=== PATIENT | male | born 1985 | race Two or more races ===

== ENCOUNTER → 2024-05-10 | Outpatient (CLI) | payer BC, SELFPAY ==
[2024-05-10 13:37] LABS: Alanine Aminotransferase 69 U/L (10-49); Albumin, Serum 5.3 gm/dL (3.5-5.0); Alkaline Phosphatase 95 U/L (46-116); Aspartate Amino Transferase 28 U/L (0-34); Bilirubin,Direct 0.3 mg/dL (0.0-0.3); Bilirubin,Total 1.1 mg/dL (0.3-1.2); Cardiac Risk Estimate 4.1 RATIO (4.0-6.7); Cholesterol 207 mg/dL (132-200); HDL Cholesterol 50 mg/dL (40-60); LDL Cholesterol,Calculated 118 mg/dL (0-130); Triglycerides 196 mg/dL (30-150)
== END | disposition home or self-care (01) ==
LOC: COPL 12:27
PROVIDERS: PCP Internal Medicine; Referring Provider Internal Medicine; Visit Provider Internal Medicine
DX: E78.2 Mixed hyperlipidemia (principal)
CPT/HCPCS: 36415; 80061; 80076

== ENCOUNTER 2024-05-12 21:47 | Emergency (ER) | payer BC, SELFPAY ==
[2024-05-12 21:48] VITALS: BMI 33.6
[2024-05-12 22:05] VITALS: BP 140/96; PULSE 104; RESP 18; TEMP 36.9; O2SAT 97
--- NOTE | 2024-05-12 22:11 | XR_ITS ---
Examination: CT abdomen and pelvis without contrast. Coronal 3-D reconstructions. Sagittal 2-D reconstructions. Date and time of exam:May 12, 2024 10:40 PM Indications: Left-sided flank pain beginning 2 hours ago, history kidney stones Comparison: February 14, 2024 CTDI: vol (mGy): 9.55 DLP: (mGycm): 594 Technique: Axial images of the abdomen have been obtained, 3 mm slice thickness Intravenous contrast material has not been administered. Low dose protocols were performed. One or more of the following dose reduction techniques were used; automated exposure control, adjustment of the mA and/or KV according to patient size, use of iterative reconstruction technique. Findings: Diffuse fatty infiltration throughout the liver Contracted gallbladder No pancreatic or splenic mass Bilateral 1 to 3 mm renal calculi Mild left hydronephrosis secondary to 2 mm distal left ureteral calculus Aorta normal size Normal appendix No bowel obstruction No bladder mass No prostatomegaly Impression: Mild left hydronephrosis secondary to 2 mm distal left ureteral calculus
--- NOTE | 2024-05-12 22:13 | EDRME_ITS ---
Rapid Medical Screening Exam RME Arrival date/time: 05/12/24 21:47 Chief Complaint: General Adult/Misc Complain Time Seen by Provider: 05/12/24 22:09 Vital signs: Vital Signs Temperature 98.5 F 05/12/24 22:05 Pulse Rate 104 H 05/12/24 22:05 Respiratory Rate 18 05/12/24 22:05 Blood Pressure 140/96 H 05/12/24 22:05 Pulse Oximetry (%) 97 05/12/24 22:05 Oxygen Delivery Method Room Air 05/12/24 22:05 [facility] Narrative: 39-year-old male patient with history of kidney stone in the past, came in for evaluation regarding left flank pain. Onset of symptoms for the last 2 days as left lung pain now radiating to the left lower abdomen. Described as sharp pain, severity moderate. Associated with nausea but denies any vomiting denies any fever. Also complained of blood-tinged urine. Denies any dysuria.
[2024-05-12] MEDS: ONDANSETRON ODT 4 MG TABRAP PO (22:47)
[2024-05-12] MEDS: KETOROLAC INJ 60 MG/2 ML VIAL 30 MG IM (22:48)
[2024-05-12 22:50] LABS: Basophils # (Auto) 0.1 Thou/mm3 (0.0-0.2); Basophils % (Auto) 0 % (0-2.5); Eosinophils # (Auto) 0.2 Thou/mm3 (0.0-0.5); Eosinophils % (Auto) 1 % (0-10); Hemoglobin 15.7 g/dL (13.5-16.0); Immature Granulocytes % (Auto) 0 % (0-0); Immature Granulocytes Auto 0.06 Thou/mm3 (0.00-0.00); Lymphocytes # (Auto) 3.1 Thou/mm3 (1.0-4.8); Lymphocytes % (Auto) 20 % (10-50); Mean Corpuscular HGB Conc 34.1 g/dl (31.0-37.0); Mean Corpuscular Hemoglobin 30.3 pg (25.0-35.0); Mean Corpuscular Volume 89 fL (80-100); Monocytes # (Auto) 0.9 Thou/mm3 (0.0-0.8); Monocytes % (Auto) 6 % (0-12); Neutrophils # (Auto) 11.5 Thou/mm3 (1.8-7.7); Neutrophils % (Auto) 73 % (37-80); Nucleated Red Blood Cell % 0 /100 WBC (0); Platelet Count 318 Thou/mm3 (140-440); RDW Standard Deviation 40.3 fL (35.1-43.9); Red Blood Count 5.19 Miln/mm3 (4.50-5.90); White Blood Count 15.8 Thou/mm3 (3.8-10.6)
[2024-05-12 23:05] LABS: Alanine Aminotransferase 65 U/L (10-49); Albumin, Serum 5.1 gm/dL (3.5-5.0); Albumin/Globulin Ratio 1.7 (1.2-2.2); Alkaline Phosphatase 91 U/L (46-116); Anion Gap 9 (7-16); Aspartate Amino Transferase 35 U/L (0-34); BUN/Creatinine Ratio 9 Ratio (12-20); Bilirubin,Total 0.5 mg/dL (0.3-1.2); Blood Urea Nitrogen 13 mg/dL (9-23); Calcium 10.8 mg/dL (8.3-10.6); Calcium (Corrected) 10.8 mg/dL (8.5-10.1); Carbon Dioxide 27.9 mMol/L (20.0-31.0); Chloride 103 mMol/L (98-107); Creatinine (Component) 1.4 mg/dL (0.6-1.3); Estimated Creatinine Clearance 78.8 mL/min (>60); Glucose 115 mg/dL (74-106); Lipase 43 U/L (12-53); Osmolality,Calculated 280 (275-295); Potassium 4.2 mMol/L (3.4-5.1); Sodium 140 mMol/L (136-145); Total Protein 8.1 gm/dL (5.7-8.2); eGFR > 60 See Note
[2024-05-13 00:59] LABS: Collection Type, Urine Clean Catch
[2024-05-13 01:20] LABS: Bilirubin,Urine Negative (Negative); Blood,Urine 2+ (Negative); Clarity,Urine Clear (Clear/Hazy); Color,Urine Yellow (Lt Yel-Yel); Culture Indicated,Urine Not Indicated; Glucose, Urine Negative (Negative); Ketones,Urine Trace (Negative); Leukocyte Esterase,Urine Negative (Negative); Nitrite,Urine Negative (Negative); PH,Urine 5.5 (5.0-7.0); Protein,Urine Trace (Neg - Trace); RBC,Urine 53 /hpf (0-3); Squamous Epithelial Cell,Urine < 1 /hpf (0-5); Urobilinogen,Urine Negative mg/dL (0.0-1.0); WBC,Urine 9 /hpf (0-5)
[2024-05-13] MEDS: cefTRIAXone 1,000 MG in SODIUM CHLORIDE 0.9% (P) 50 ML 100 MG IV (03:02)
[2024-05-13 03:05] VITALS: BP 132/91; PULSE 82; RESP 17; O2SAT 98
[2024-05-13] MEDS: HYDROcodone/APAP 5/325 TABLET 1 TAB PO (03:37)
[2024-05-13] MEDS: TAMSULOSIN HCL 0.4 MG CAPSULE PO (03:37)
--- NOTE | 2024-05-13 04:20 | EDNOTE_ITS ---
ED General RME/HPI General Chief complaint: General Adult/Misc Complain Stated complaint: LEFT FLANK PAIN Time Seen by Provider: 05/12/24 22:09 Source: patient Arrival date/time: 05/12/24 21:47 Mode of arrival: ambulatory Limitations: no limitations RME / HPI RME / HPI narrative: 39-year-old male patient with history of kidney stone in the past, came in for evaluation regarding left flank pain. Onset of symptoms for the last 2 days as left lung pain now radiating to the left lower abdomen. Described as sharp pain, severity moderate. Associated with nausea but denies any vomiting denies any fever. Also complained of blood-tinged urine. Denies any dysuria. DR ALMAZAN MAIN ED EVALUATION: 37-year-old male presents to ED via private auto for c/o left flank pain. Patient notes onset began approximately 2 days ago. The pain was initially in his left lung area radiating to his left lower abdomen area. Symptoms are moderate. He reports nausea but no vomiting. No fever. He notes some blood- tinged urine but no dysuria. Denies any other medical complaints. Related Data Previous Rx's ?Medication ?Instructions ?Recorded amoxicillin 875 mg-potassium 1 tab PO BID #14 tabs 05/17/20 clavulanate 125 mg tablet (Augmentin) doxycycline hyclate 100 mg tablet 100 mg PO BID #14 tabs 05/17/20 metformin 500 mg tablet 500 mg PO BID #60 tabs 05/17/20 ibuprofen 600 mg tablet 600 mg PO Q6H PRN pain #30 tabs 05/13/24 tamsulosin 0.4 mg capsule 0.4 mg PO QDAY #14 caps 05/13/24 Allergies Allergy/AdvReac Type Severity Reaction Status Date / Time Penicillins Allergy Intermediate Hives Verified 05/21/18 13:56 Review of Systems Review of Systems Systems Reviewed: All systems reviewed, normal except as documented Past Medical History Past Medical History CARDIAC: Negative Cardiac Disorders or Congestive Heart Failure RESPIRATORY: Positive Asthma; Negative Chronic Obstructive Pulmonary Disease (COPD) GENITOURINARY: Negative Renal Disease ENDOCRINE: Negative Diabetes Mellitus Type 1 or Diabetes Mellitus Type 2 HEMATOLOGIC: Negative Sickle Cell Disease Social History SMOKING STATUS: Never smoker ED Exam Narrative Physical exam: GENERAL APPEARANCE: alert and oriented x 4, well-developed, well-nourished, no acute distress VITALS: All vitals were reviewed and the pulse ox is 98% on room air, which is normal according to my interpretation. HEENT: Normocephalic, atraumatic; pupils equal, round, reactive to light; EOMI; mucous membranes pink, moist; oropharynx clear NECK: Supple LUNGS: CTABL; no wheezes, no rales, no rhonchi HEART: Regular rate, regular rhythm; normal S1, S2; no murmurs ABDOMEN: non distended; normal BS; soft, no tenderness, no guarding, no rebound; no masses, no organomegaly, no hernia BACK: no CVA tenderness EXTREMITIES: atraumatic; no edema NEUROLOGIC: awake; alert and oriented x4; cranial nerves II-XII grossly intact; no focal sensory or motor deficits PSYCHIATRIC: appropriate mood and affect SKIN: warm, dry, normal color; no rashes General Limitations: Present no limitations Course Quality Measures none Orders Category Date Time Status CT abdomen pelvis wo con Stat Exams 05/12/24 22:11 Completed CBC [CBC] Stat Lab 05/12/24 22:27 Completed CMP [Comprehensive Metabolic Panel] Stat Lab 05/12/24 22:27 Completed Lipase Stat Lab 05/12/24 22:27 Completed UA, C/S IF [Urinalysis, C/S if Indicated] Stat Lab 05/13/24 00:35 Completed HYDROcodone*/APAP 5/325 [[place] 5/325] Med 05/13/24 03:32 Discontinued 1 tab PO X1 ONE Ketorolac Inj [Toradol Inj] Med 05/12/24 22:11 Discontinued 30 mg IM X1 ONE Ondansetron Odt [Zofran Odt] Med 05/12/24 22:11 Discontinued 4 mg PO X1 ONE Tamsulosin HCl [Flomax] Med 05/13/24 03:32 Discontinued 0.4 mg PO X1 ONE cefTRIAXone [Rocephin] 1,000 mg Med 05/13/24 02:35 Discontinued Sodium Chloride 0.9% (P) [Ns 0.9% (P)] 50 ml IV X1 Vital Signs Vital signs: Vital Signs Temperature 98.5 F 05/12/24 22:05 Pulse Rate 104 H 05/12/24 22:05 Respiratory Rate 18 05/12/24 22:05 Blood Pressure 140/96 H 05/12/24 22:05 Pulse Oximetry (%) 97 05/12/24 22:05 Oxygen Delivery Method Room Air 05/12/24 22:05 [facility] Patient data External records reviewed:: [facility] previous records Clinical information provided by:: patient Social determinants that could affect healthcare access:: none How is presenting disease/condition affected by chronic disease/condition?: u neffected by Evaluation data The following diagnostics were reviewed and interpreted by me:: lab results and radiology exam(s) Lab and/or radiology exams considered but not ordered:: n/a Interpretation Summary: I personally reviewed the radiology data and agree with the radiologist's interpretation. Examination: CT abdomen and pelvis without contrast. Coronal 3-D reconstructions. Sagittal 2-D reconstructions. Date and time of exam:May 12, 2024 10:40 PM Indications: Left-sided flank pain beginning 2 hours ago, history kidney stones Comparison: February 14, 2024 Findings: Diffuse fatty infiltration throughout the liver Contracted gallbladder No pancreatic or splenic mass Bilateral 1 to 3 mm renal calculi Mild left hydronephrosis secondary to 2 mm distal left ureteral calculus Aorta normal size Normal appendix No bowel obstruction No bladder mass No prostatomegaly Impression: Mild left hydronephrosis secondary to 2 mm distal left ureteral calculus Dictated By: Alessandro Spann MD Signed By: <Electronically signed by Alessandro Spann MD in [place]> 05/12/24 2333 Medications Medications considered but not ordered:: n/a Medication administrations:: Medication Administration History Discontinued Medications Hydrocodone Bitart/Acetaminophen (Hydrocodone/Apap 5/325 Tablet) 1 tab PO X1 ONE Stop: 05/13/24 03:33 Last Admin: 05/13/24 03:37 Dose: 1 tab Documented By: TRELL Ceftriaxone Sodium 1,000 mg/ (Sodium Chloride) 50 mls @ 100 mls/hr IV X1 ONE Stop: 05/13/24 03:04 Last Infusion: 05/13/24 03:38 Dose: Infused Documented By: Admin: 05/13/24 03:02 Dose: 100 mls/hr Documented By: TRELL Ketorolac Tromethamine (Ketorolac Inj 60 Mg/2 Ml Vial) 30 mg IM X1 ONE Stop: 05/12/24 22:12 Last Admin: 05/12/24 22:48 Dose: 30 mg Documented By: SE Ondansetron HCl (Ondansetron Odt 4 Mg Tabrap) 4 mg PO X1 ONE; Protocol Stop: 05/12/24 22:12 Last Admin: 05/12/24 22:47 Dose: 4 mg Documented By: SE Tamsulosin HCl (Tamsulosin Hcl 0.4 Mg Capsule) 0.4 mg PO X1 ONE Stop: 05/13/24 03:33 Last Admin: 05/13/24 03:37 Dose: 0.4 mg Documented By: KD as above Consultations Consultation(s) initiated? (list below): No Diagnosis Most likely diagnosis given after review of the tests above:: Left ureteral stone Admission Indicated Admission indicated?: not indicated Explain why admission is indicated or not indicated:: Patient has no emergent abnormalities in their studies and can be managed on an outpatient basis. Admission Request Was there a request for admission?: No Disposition Plan Disposition Plan: Discharge Discharge Attestation Discharge Attestation: The patient and all family members were given an opportunity to ask questions and understood the discharge instructions. Discharge instructions specifically effects, indications for sooner follow up or return to the emergency department, and the expected course of current diagnosis. Patient condition: Stable Medical Decision Making Lab Data 05/12/24 22:27 05/12/24 22:27 Labs: Lab Results 05/12/24 05/13/24 Range/Units 22:27 00:35 WBC 15.8 H (3.8-10.6) Thou/mm3 RBC 5.19 (4.50-5.90) Miln/mm3 Hgb 15.7 (13.5-16.0) g/dL Hct 46.0 (41.0-53.0) % MCV 89 (80-100) fL MCH 30.3 (25.0-35.0) pg MCHC 34.1 (31.0-37.0) g/dl RDW Std Deviation 40.3 (35.1-43.9) fL Plt Count 318 (140-440) Thou/mm3 Neut % (Auto) 73 (37-80) % Lymph % (Auto) 20 (10-50) % [place] % (Auto) 6 (0-12) % Eos % (Auto) 1 (0-10) % Baso % (Auto) 0 (0-2.5) % Neut # (Auto) 11.5 H (1.8-7.7) Thou/mm3 Lymph # (Auto) 3.1 (1.0-4.8) Thou/mm3 [place] # (Auto) 0.9 H (0.0-0.8) Thou/mm3 Eos # (Auto) 0.2 (0.0-0.5) Thou/mm3 Baso # (Auto) 0.1 (0.0-0.2) Thou/mm3 Immature Gran # (Auto) 0.06 H (0.00-0.00) Thou/mm3 Absolute Nucleated RBC 0.00 (0.00-0.00) Thou/mm3 Immature Gran % 0 (0-0) % Nucleated RBC % 0 (0) /100 WBC Sodium 140 (136-145) mMol/L Potassium 4.2 (3.4-5.1) mMol/L Chloride 103 (98-107) mMol/L Carbon Dioxide 27.9 (20.0-31.0) mMol/L Anion Gap 9 (7-16) BUN 13 (9-23) mg/dL Creatinine 1.4 H (0.6-1.3) mg/dL Estim Creat Clear Calc 78.8 (>60) mL/min eGFR > 60 (60 - ) See Note BUN/Creatinine Ratio 9 L (12-20) Ratio Glucose 115 H (74-106) mg/dL Calculated Osmolality 280 (275-295) Calcium 10.8 H (8.3-10.6) mg/dL Corrected Calcium 10.8 H (8.5-10.1) mg/dL Total Bilirubin 0.5 D (0.3-1.2) mg/dL AST 35 H (0-34) U/L ALT 65 H (10-49) U/L Alkaline Phosphatase 91 (46-116) U/L Total Protein 8.1 (5.7-8.2) gm/dL Albumin 5.1 H (3.5-5.0) gm/dL Globulin 3.0 (2.3-3.5) gm/dL Albumin/Globulin Ratio 1.7 (1.2-2.2) Lipase 43 (12-53) U/L Ur Collection Type Clean Catch Urine Color Yellow (Lt Yel-Yel) Urine Clarity Clear (Clear/Hazy) Urine pH 5.5 (5.0-7.0) Ur Specific [place] 1.030 (1.001-1.035) Urine Protein Trace (Neg - Trace) Urine Glucose (UA) Negative (Negative) Urine Ketones Trace (Negative) Urine Blood 2+ A (Negative) Urine Nitrite Negative (Negative) Urine Bilirubin Negative (Negative) Urine Urobilinogen (Auto) Negative (0.0-1.0) mg/dL Ur Leukocyte Esterase Negative (Negative) Urine RBC 53 H (0-3) /hpf Urine WBC 9 H (0-5) /hpf Ur Squamous Epith Cells < 1 (0-5) /hpf Urine Bacteria None (None) Ur Culture Indicated? Not Indicated Discharge Plan Plan Patient Disposition: HOME (Self Care) Prescriptions/Referrals Prescriptions/Med Rec: New tamsulosin 0.4 mg capsule 0.4 mg PO QDAY Qty: 14 0RF ibuprofen 600 mg tablet 600 mg PO Q6H PRN (Reason: pain) Qty: 30 0RF No Action amoxicillin-pot clavulanate [Augmentin] 875-125 mg tablet 1 tab PO BID Qty: 14 0RF doxycycline hyclate 100 mg tablet 100 mg PO BID Qty: 14 0RF metformin 500 mg tablet 500 mg PO BID Qty: 60 0RF Referrals: Anand Sebastian MD [Primary Care Provider] - In 1 week Problem List Clinical Impression: Left ureteral stone Patient/Caregiver Discharge Instructions Education Materials: ED Kidney Stone w/ Colic Print Language: French Stand Alone Forms: Alida Award Info., Patient Portal Info Letter
== END 2024-05-13 03:46 | disposition home or self-care (01) ==
PROVIDERS: Nurse Practitioner Family; Emergency Provider Emergency Medicine; PCP Internal Medicine
DX: N13.2 Hydronephrosis with renal and ureteral calculous obstruction (principal)
CPT/HCPCS: 36415; 74176; 80053; 81001; 83690; 85025; 96365; 96372; 99284; J0696; J1885; J7050; Q0162; A9270

== ENCOUNTER → 2024-09-03 | Outpatient (BNVA) | payer BC, SELFPAY | END | disposition home or self-care (01) | PROVIDERS: PCP Internal Medicine; Referring Provider Internal Medicine; Visit Provider Urology | DX: N20.0 Calculus of kidney (principal); E66.9 Obesity, unspecified; Z68.33 Body mass index [BMI] 33.0-33.9, adult | CPT/HCPCS: 81003; 99212; G0463 ==

== ENCOUNTER → 2025-01-29 | Outpatient (CLI) | payer BC, SELFPAY ==
[2025-01-29 16:43] LABS: Parathyroid Hormone Intact 92.4 pg/ml (18.5-88.0)
== END | disposition home or self-care (01) ==
PROVIDERS: PCP Internal Medicine; Referring Provider Urology; Visit Provider Urology
DX: N20.0 Calculus of kidney (principal)
CPT/HCPCS: 36415; 83970

== ENCOUNTER → 2025-02-01 | Outpatient (BNVA) | payer BC, SELFPAY | END | disposition home or self-care (01) | PROVIDERS: PCP Internal Medicine; Referring Provider Internal Medicine; Visit Provider Urology | DX: N40.0 Benign prostatic hyperplasia without lower urinary tract symptoms (principal); Z87.442 Personal history of urinary calculi | CPT/HCPCS: 81003; 99212; G0463 ==